=== PATIENT | male | born 1960 | race Hispanic/Latino ===

== ENCOUNTER 2017-02-24 13:40 | Emergency (ER) | payer OTHER ==
[2017-02-24 13:47] VITALS: BP 138/90; PULSE 90; RESP 16; TEMP 96.8; O2SAT 95
--- NOTE | 2017-02-24 15:11 | ED PDOC ---
Upper Extremity Pain/Injury Time Seen by Provider: 02/24/17 13:48 Chief Complaint (Nursing): Upper Extremity Problem/Injury Chief Complaint (Provider): Upper Extremity Problem/Injury History Per: Patient History/Exam Limitations: no limitations Onset/Duration Of Symptoms: Days (x8) Additional Complaint(s): All Camacho, 56 year old male presents to the ED stating he sustained a fracture to his left wrist on February. The patient reports being seen at [facility] where he was splinted and told to follow up with Dr. Nagy (sp?) . The patient states he contacted the orthopedist but was told the orthopedist would not see him due to lack of insurance. He then attempted to contact multiple orthopedists, but was unsuccessful in finding an orthopedist that will accept his insurance. The patient reports the pain to his wrist has resolved. He denies numbness and tingling. PMD: None provided Past Medical History Reviewed: Historical Data, Nursing Documentation, Vital Signs Vital Signs: Last Vital Signs Temp 96.8 F L 02/24/17 13:43 Pulse 90 02/24/17 13:43 Resp 16 02/24/17 13:43 BP 138/90 02/24/17 13:43 Pulse Ox 95 02/24/17 13:43 - Medical History PMH: No Chronic Diseases - Family History Family History: States: Unknown Family Hx - Social History Current smoker - smoking cessation education provided: Yes Alcohol: None Drugs: Denies - Allergies Allergies/Adverse Reactions: Allergies Allergy/AdvReac Type Severity Reaction Status Date / Time No Known Allergies Allergy Verified 02/24/17 13:44 Review of Systems ROS Statement: Except As Marked, All Systems Reviewed And Found Negative Musculoskeletal: Negative for: Hand Pain (fracture to left wrist; no wrist pain) Neurological: Negative for: Numbness (and no tingling ) Physical Exam - Reviewed Nursing Documentation Reviewed: Yes Vital Signs Reviewed: Yes - Physical Exam Appears: Positive for: Well, Non-toxic, No Acute Distress Head Exam: Positive for: ATRAUMATIC, NORMAL INSPECTION, NORMOCEPHALIC Pulses-Radial (L): 2+ Pulses-Radial (R): 2+ Extremity: Positive for: Capillary Refill (less than 2 seconds), Swelling (mild swelling to left wrist), Other (healing old abrasion on volar surface on ulnar side of left wrist; no surrounding erythema). Negative for: Tenderness (to left wrist), Deformity (to left wrist) - ECG O2 Sat by Pulse Oximetry: 95 (RA) Pulse Ox Interpretation: Normal Medical Decision Making Medical Decision Making: Impression: Left wrist fracture Plan: * Wrist, Left 3 Views [RAD] Stat X-ray and case discussed with Dr. Dick. Pt can follow-up in clinic but must be re-splinted. Pt was given number to [facility]. Dr. Lea and gio candelario told pt to follow-up with them. Pt was also given a copy of the X-rays. Scribe Attestation: Documented by Misti Myers, acting as a scribe for Spike Wong PA-C. Provider Scribe Attestation: All medical record entries made by the Scribe were at my direction and personally dictated by me. I have reviewed the chart and agree that the record accurately reflects my personal performance of the history, physical exam, medical decision making, and the department course for this patient. I have also personally directed, reviewed, and agree with the discharge instructions and disposition. Procedures - Splinting Location: L wrist Hand-Made Type: orthoglass Splint: sugar-tong (reverse) Pre-Proc Neuro Vasc Exam: normal Post-Proc Neuro Vasc Exam: normal Disposition - Clinical Impression Clinical Impression: Wrist fracture - Patient ED Disposition Is Patient to be Admitted: No - Disposition Referrals: [facility] [Outside] [facility] [Outside] Nilton Lea III, MD [Staff Provider] - Disposition: Routine/Home Disposition Time: 14:15 Condition: STABLE Instructions: Wrist Fracture in Adults (ED), Splint Care (ED) Print Language: FIJIAN
--- NOTE | 2017-02-25 08:30 | RAD ---
PROCEDURE: Right Wrist Radiographs. HISTORY: trauma COMPARISON: None. FINDINGS: BONES: Impaction fracture of the distal radius. JOINTS: Normal. No dislocation. SOFT TISSUES: Normal. OTHER FINDINGS: None. IMPRESSION: Impaction fracture of the distal radius.
== END 2017-02-24 15:23 | disposition home or self-care (01) ==
LOC: H.ER 13:40
DX: Z47.89 Encounter for other orthopedic aftercare (principal)